=== PATIENT | female | born 1975 | race Hispanic/Latino ===

== ENCOUNTER → 2025-03-02 | Day surgery (SDC) | payer OTHER ==
[~2025-03-02] MED LIST: CALCITRIOL0.5 MCG PO; GLIMEPIRIDE2 MG PO; GLYBURIDE5 MG PO; LEVOTHYROXINE50 MCG PO; LIDOCAINE HCL 2% LOCAL INJ 5 ML SDV VIAL INJ ONE; LIPITOR20 MG PO; LOSARTAN POTAS100 MG PO; MIDAZOLAM HCL 2 MG/2 ML VIAL ONE; PANTOPRAZOLE SO40 MG PO; PROPOFOL IV EMULSION 10 MG/ML 20 ML VIAL ONE
[2025-03-02] MEDS: LACTATED RINGER'S 1,000 ML ONE (07:55)
[2025-03-02 09:22] VITALS: TEMP 97.6
[2025-03-02 09:45] VITALS: BP 143/71; PULSE 81; RESP 16; O2SAT 100
== END | disposition home or self-care (01) ==
LOC: OR 07:28
PROVIDERS: ATTEND Internal Medicine Gastroenterology
DX: Z12.11 Encounter for screening for malignant neoplasm of colon (principal); K57.30 Diverticulosis of large intestine without perforation or abscess without bleeding; K21.9 Gastro-esophageal reflux disease without esophagitis; R03.0 Elevated blood-pressure reading, without diagnosis of hypertension; E11.9 Type 2 diabetes mellitus without complications; Z01.810 Encounter for preprocedural cardiovascular examination; Z79.84 Long term (current) use of oral hypoglycemic drugs; Z79.899 Other long term (current) drug therapy; Z68.42 Body mass index [BMI] 45.0-49.9, adult; Z85.850 Personal history of malignant neoplasm of thyroid; Z92.3 Personal history of irradiation
CPT/HCPCS: 36415; 45378; 81025; 82948; 93005; J2003; J2250; J2704; J7121

== ENCOUNTER → 2025-03-03 | Day surgery (SDC) | payer OTHER ==
[~2025-03-03] MED LIST changes: +HYOSCYAMINE SULFATE 0.5 MG/ML INJ ONE
[2025-03-03] MEDS: LACTATED RINGER'S 1,000 ML ONE (07:14)
[2025-03-03 08:46] VITALS: TEMP 97.8
[2025-03-03 09:05] VITALS: BP 138/76; PULSE 81; RESP 16; O2SAT 98
== END | disposition home or self-care (01) ==
LOC: OR 06:48
PROVIDERS: ATTEND Internal Medicine Gastroenterology
DX: Z12.11 Encounter for screening for malignant neoplasm of colon (principal); D12.4 Benign neoplasm of descending colon; K57.90 Diverticulosis of intestine, part unspecified, without perforation or abscess without bleeding; K64.8 Other hemorrhoids; I10 Essential (primary) hypertension; E11.9 Type 2 diabetes mellitus without complications; E03.9 Hypothyroidism, unspecified; E66.9 Obesity, unspecified; E78.5 Hyperlipidemia, unspecified; Z79.84 Long term (current) use of oral hypoglycemic drugs; Z85.850 Personal history of malignant neoplasm of thyroid; Z01.812 Encounter for preprocedural laboratory examination
CPT/HCPCS: 36415; 45380; 45384; 82948; J1980; J2003; J2250; J2704; J7121